=== PATIENT | male | born 1995 | race Two or more races ===

== ENCOUNTER 2023-02-25 07:45 | Outpatient (CLI) | payer BC, SELFPAY | END 2023-02-25 07:46 | disposition home or self-care (01) | LOC: NFLDREF 02-28 10:07 | PROVIDERS: PCP Family Medicine; Referring Provider Family Medicine; Visit Provider Family Medicine | DX: E66.9 Obesity, unspecified (principal); Z13.1 Encounter for screening for diabetes mellitus; Z13.6 Encounter for screening for cardiovascular disorders | CPT/HCPCS: 80061; 82947; 84443 ==

== ENCOUNTER 2024-06-09 08:17 | Outpatient (CLI) | payer BC, SELFPAY | END 2024-06-09 08:18 | disposition home or self-care (01) | LOC: NFLDREF 06-11 04:02 | PROVIDERS: PCP Family Medicine; Referring Provider Family Medicine; Visit Provider Family Medicine | DX: E78.5 Hyperlipidemia, unspecified (principal) | CPT/HCPCS: 80061 ==

== ENCOUNTER 2024-09-27 21:02 | Emergency (ER) | payer BC, SELFPAY ==
[2024-09-27 21:19] VITALS: BP 153/86; PULSE 72; RESP 20; TEMP 36.9; O2SAT 99; BMI 42.6
[2024-09-27 21:48] LABS: Strep A DNA Probe* NOT DETECTED (Not Detectd)
[2024-09-27 22:01] LABS: PCR FLU A Negative PCR FLU A (Negative); PCR FLU B Negative PCR FLU B (Negative); PCR RSV Negative PCR RSV (Negative); SARS PCR* Negative SARS-CoV-2 (Negative)
[2024-09-27 23:32] VITALS: BP 125/74; PULSE 76; RESP 20; TEMP 36.9; O2SAT 99
[2024-09-27 23:33] VITALS: BP 125/74; PULSE 76; RESP 20; TEMP 36.9
--- NOTE | 2024-09-28 04:42 | ED_ITS ---
HPI - General Adult General Date Seen: 09/28/24 Chief complaint: Cough Stated complaint: fever, cough Time Seen by Provider: 09/27/24 23:23 Source: patient Mode of arrival: ambulatory Limitations: no limitations History of Present Illness HPI narrative: Patient is a 29-year-old male who has been ill for several days with fever, cough, body aches. One of his children was diagnosed with strep. He has had some low-grade fevers. He denies any wheezing or shortness of breath. He is eating and drinking well. He is taking Tylenol and ibuprofen. He has no chronic health problems. Related Data Home Medications ?Medication ?Instructions ?Recorded ?Confirmed No Known Home Medications 09/27/24 09/27/24 Allergies Allergy/AdvReac Type Severity Reaction Status Date / Time No Known Allergies Allergy Unknown Verified 09/27/24 21:21 Review of Systems Narrative: Review of systems is as outlined above otherwise noted to be negative. [facility] Medical History (Updated 09/27/24 @ 23:31 by Leon Lua RN) No significant past medical history Surgical History (Updated 09/27/24 @ 23:31 by Leon Lua RN) No significant past surgical history Social History (Updated 05/31/24 @ 14:42 by Claudette Rosenthal~[facility], [facility]) Narrative: Patient does not drink alcohol. 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 What is your current living situation?: I presently have a place to live Problems where you live: no known problems In the past 12 months, utilities in danger of being shut off: no In past 12 months, lack of transportation kept you from medical appts, meetings, work, or getting things needed for daily living: no In the past 12 mos, have been you worried that your food would run out before you had money to buy more?: sometimes true In the past 12 mos, the food you bought just didn't last and you didn't have money to buy more?: never true Smoking Status: Never smoker Second hand tobacco smoke exposure: No How often do you have a drink containing alcohol: never AUDIT-C Alcohol total score: 0 Non-prescribed substance use: denies use How often does anyone, including family, friends and others, physically hurt you : never How often does anyone, including family, friends and others, insult or talk down to you: never How often does anyone, including family, friends and others, threaten you with harm: never How often does anyone, including family, friends and others, scream or curse at you: never Health Related Social Needs: food insecurity (Z59.41) Exam Narrative: Exam Narrative: Vitals noted. HEENT: Conjunctiva clear. Tympanic membranes are pearly white bilaterally. Posterior pharynx is clear without erythema or exudate. Neck is supple without adenopathy, thyromegaly, carotid bruit. Lungs: Coarse but clear. No wheezes, rales, rhonchi. Heart: Regular rate and rhythm without murmur. Abdomen: Soft and nontender. No guarding, rigidity, rebound. Bowel sounds are normal. No palpable masses. Extremities: No cyanosis or edema. Good distal pulses. Skin: No abnormalities noted of the exposed skin. Neurologic: Awake, alert, fully oriented. Neurologic exam is nonfocal. Const: Vital Signs, click to edit/add: Vital Signs - 24 hr 09/27/24 21:19 09/27/24 23:32 09/27/24 23:33 Temperature 98.5 F 98.5 F 98.5 F Pulse Rate [Right Pulse Oximeter] 72 76 76 Respiratory Rate 20 20 20 Blood Pressure [Ri ght Upper Arm] 153/86 H 125/74 125/74 Pulse Oximetry 99 99 Oxygen Delivery Me thod Room Air Room Air Course Course ED Course: Patient was seen and examined. Swabs for strep, flu, COVID, RSV are all negative. Vital Signs Vital signs: Initial Vital Signs Respiratory Effort Normal, Spontaneous, Non-Labored 09/27/24 21:18 Respiratory Depth Normal 09/27/24 21:18 Respiratory Pattern Normal 09/27/24 21:18 Vital Signs Temperature 98.5 F 09/27/24 21:19 Pulse Rate 72 09/27/24 21:19 Respiratory Rate 20 09/27/24 21:19 Blood Pressure 153/86 H 09/27/24 21:19 Pulse Oximetry 99 09/27/24 21:19 Oxygen Delivery Method Room Air 09/27/24 21:19 Temperature 98.5 F 09/27/24 23:33 Pulse Rate 76 09/27/24 23:33 Respiratory Rate 20 09/27/24 23:33 Blood Pressure 125/74 09/27/24 23:33 Pulse Oximetry 99 09/27/24 23:32 Oxygen Delivery Method Room Air 09/27/24 23:32 Medical Decision Making Lab Data Labs: Lab Results 09/27/24 Range/Units 21:16 SARS-CoV-2 (PCR) Negative SARS-CoV-2 (Negative) Influenza Type A (PCR) Negative PCR FLU A (Negative) Influenza Type B (PCR) Negative PCR FLU B (Negative) RSV (PCR) Negative PCR RSV (Negative) Group A Strep DNA NOT DETECTED (Not Detectd) Discharge Plan Discharge Clinical Impression: Acute bronchitis Patient Disposition: Home, Self-Care Condition: Stable Additional Instructions: Rest, fluids, Tylenol or Ibuprofen for pain and fever. Zithromax x 5 days. Follow up with PCP if no better in 3-5 days. No work for the next 2-3 days. Prescriptions: No Action No Known Home Medications Follow Up/Referrals: Levy Kimbrough MD [Primary Care Provider] - Stand Alone Forms: [facility] Info Instructions
== END 2024-09-27 23:33 | disposition home or self-care (01) ==
PROVIDERS: Emergency Provider Family Medicine; PCP Family Medicine
DX: J20.9 Acute bronchitis, unspecified (principal)
CPT/HCPCS: 87631; 87651; 99282; 99283; 99284

== ENCOUNTER 2025-09-14 13:22 | Emergency (ER) | payer OTHER, SELFPAY ==
[2025-09-14 13:27] VITALS: BP 131/85; PULSE 93; RESP 18; TEMP 35.8; O2SAT 99; BMI 42.0
--- NOTE | 2025-09-14 14:07 | CRLHL7_ITS ---
For Patients: As a result of the Cures Act, medical imaging exams and procedure reports are released immediately into your electronic medical record. You may view this report before your referring provider. If you have questions, please contact your health care provider. INDICATION: Cough TECHNIQUE: Chest 2 views. COMPARISON: None. FINDINGS/ IMPRESSION: No consolidation, effusion or pneumothorax. Cardiac size is within normal limit without pulmonary edema. No acute osseous abnormality. Dictated by Jennifer Harrison MD @ 09/14/2025 2:27:20 PM (Electronically Signed)
--- NOTE | 2025-09-14 14:07 | ED_ITS ---
HPI - General Adult General Chief complaint: Cough Stated complaint: Sore throat, coughing blood Time Seen by Provider: 09/14/25 14:01 History of Present Illness HPI narrative: This 30-year-old male comes in reporting cough for the past month. He states that at times he has rather vigorous coughing and sometimes has some blood tinging the sputum. He does not report any fevers or shortness of breath. Related Data Previous Rx's ?Medication ?Instructions ?Recorded acetaminophen 300 mg-codeine 30 mg 1 tab PO Q6H PRN pa in #15 tabs 09/14/25 tablet Allergies Allergy/AdvReac Type Severity Reaction Status Date / Time No Known Allergies Allergy Unknown Verified 09/14/25 13:30 Review of Systems Status of ROS: Reports: 10 or more systems reviewed and unremarkable except as noted in History and below Narrative: Constitutional: No fevers, no weight gain or loss. Eyes: No discharge. No vision changes. HENT: No congestion, no sore throat, no ear pain. Cardiovascular: No chest pain, no palpitations. Respiratory: No shortness of breath, no wheezes. Productive cough as described above. Gastrointestinal: No abdominal pain, no vomiting, no diarrhea. Genitourinary: No dysuria, no hematuria. Musculoskeletal: Normal range of motion. Skin: No rashes, no pruritis. Neurological: No dizziness, weakness, sensory change, speech change. Endo/Heme/Allergies: No bruising or bleeding. No polydipsia. Pysch: no suicidality, no anxiety, no insomnia. All other systems reviewed and are negative. [facility] Medical History (Updated 09/14/25 @ 14:41 by Wally Juárez MD) No significant past medical history Surgical History (Updated 09/27/24 @ 23:31 by Leon Lua RN) No significant past surgical history Social History (Updated 05/31/24 @ 14:42 by Claudette Rosenthal~[facility], [facility]) Narrative: Patient does not drink alcohol. 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 What is your current living situation?: I presently have a place to live Problems where you live: no known problems In the past 12 months, utilities in danger of being shut off: no In past 12 months, lack of transportation kept you from medical appts, meetings, work, or getting things needed for daily living: no In the past 12 mos, have been you worried that your food would run out before you had money to buy more?: sometimes true In the past 12 mos, the food you bought just didn't last and you didn't have money to buy more?: never true Smoking Status: Never smoker Second hand tobacco smoke exposure: No How often do you have a drink containing alcohol: never AUDIT-C Alcohol total score: 0 Non-prescribed substance use: denies use How often does anyone, including family, friends and others, physically hurt you : never How often does anyone, including family, friends and others, insult or talk down to you: never How often does anyone, including family, friends and others, threaten you with harm: never How often does anyone, including family, friends and others, scream or curse at you: never Health Related Social Needs: food insecurity (Z59.41) Exam Narrative: Exam Narrative: Constitutional: Well-developed, well-nourished, no acute distress. HEENT: Normocephalic, atraumatic. Neck: Normal range of motion. Nontender. Supple. Heart: Regular. No murmurs. Normal rate. Intact distal pulses. Lungs: Clear to auscultation. No chest discomfort. No wheezes, rhonchi, or rales . Abdomen: Normal bowel sounds. Nontender. No rebound tenderness. Genitalia: Deferred. Back: No midline tenderness. Normal range of motion. Extremities: Normal range of motion. No injury. Skin: Intact. No rash. Warm. No erythema or pallor. Neurologic: No altered sensation. No weakness. Alert and oriented. Psychiatric: No suicidality. No anxiety or depression. No insomnia. Nursing notes and vitals signs are reviewed. Const: Vital Signs, click to edit/add: Vital Signs - 24 hr 09/14/25 13:27 Temperature 96.4 F L Pulse Rate [Pulse Oximeter] 93 Respiratory Rate 18 Blood Pressure [Ri ght Upper Arm] 131/85 Pulse Oximetry 99 Oxygen Delivery Me thod Room Air Course Vital Signs Vital signs: Initial Vital Signs Temperature 96.4 F L 09/14/25 13:27 Temperature Source Temporal Artery Scan 09/14/25 13:27 Pulse Rate 93 09/14/25 13:27 Pulse Rhythm Regular 09/14/25 13:27 Pulse Strength 3+ Normal 09/14/25 13:27 Respiratory Rate 18 09/14/25 13:27 Blood Pressure 131/85 09/14/25 13:27 Blood Pressure Mean 100 09/14/25 13:27 Blood Pressure Position Sitting 09/14/25 13:27 Pulse Oximetry 99 09/14/25 13:27 Oxygen Delivery Method Room Air 09/14/25 13:27 Vital Signs Temperature 96.4 F L 09/14/25 13:27 Pulse Rate 93 09/14/25 13:27 Respiratory Rate 18 09/14/25 13:27 Blood Pressure 131/85 09/14/25 13:27 Pulse Oximetry 99 09/14/25 13:27 Oxygen Delivery Method Room Air 09/14/25 13:27 Temperature 96.4 F L 09/14/25 13:27 Pulse Rate 93 09/14/25 13:27 Respiratory Rate 18 09/14/25 13:27 Blood Pressure 131/85 09/14/25 13:27 Pulse Oximetry 99 09/14/25 13:27 Oxygen Delivery Method Room Air 09/14/25 13:27 Medical Decision Making MDM Narrative Medical decision making narrative: This patient reports a cough for the past month. Chest x-ray is obtained and shows no sign of infiltrate. The patient has normal vital signs. His exam is also reassuring. He did receive an oral dose of dexamethasone and I provided a prescription for some tablets of Tylenol 3 for better cough suppression. Imaging Data Chest x-ray: Radiologist's impression: No consolidation, effusion or pneumothorax. Cardiac size is within normal limit without pulmonary edema. No acute osseous abnormality. Discharge Plan Discharge Clinical Impression: Acute upper respiratory infection Patient Disposition: Home, Self-Care Condition: Stable Additional Instructions: Take medication as needed and directed. Use [id number] medicines also as indicated. Follow up with MD return if worsening. Prescriptions: New acetaminophen-codeine 300-30 mg tablet 1 tab PO Q6H PRN (Reason: pain) Qty: 15 0RF Follow Up/Referrals: Levy Kimbrough MD [Primary Care Provider, Family Practice] Stand Alone Forms: [facility] Info Instructions
== END 2025-09-14 14:53 | disposition home or self-care (01) ==
PROVIDERS: Emergency Provider Emergency Medicine Emergency Medical Services; PCP Family Medicine
DX: J06.9 Acute upper respiratory infection, unspecified (principal)
CPT/HCPCS: 71046; 99283; 99284; J1100